=== PATIENT | male | born 1970 | race Caucasian/White ===

== ENCOUNTER 2025-05-28 15:35 | Emergency (ER) | payer MEDICAID ==
[~2025-05-28] VITALS: Ht 170.2 cm; Wt 76.4 kg
[2025-05-28 16:17] LABS: PLATELET COUNT (AUTO) 224 K/uL (150-450); RED BLOOD CELL COUNT(AUTO) 5.65 MIL/uL (4.50-5.90); RED CELL DISTRIBUTION WIDTH 14.1 % (11.5-14.5); WHITE BLOOD COUNT (AUTO) 16.0 K/uL (4.5-11.0)
[2025-05-28 16:28] LABS: CALCIUM, TOTAL 9.9 mg/dL (8.8-10.5); CREATININE 1.23 mg/dL (0.60-1.30); GLOMERULAR FILTR. RATE CALC > 60 mL/min (>60); GLUCOSE,RANDOM 171 mg/dL (70-110); SODIUM SERUM 138 mmol/L (136-145); UREA NITROGEN, BLOOD 22 mg/dL (7-18)
[2025-05-28 16:34] LABS: ASPARTATE AMINOTRANSFERASE 30 U/L (15-37); TOTAL PROTEIN, SERUM 8.1 g/dL (6.4-8.2)
[2025-05-28 16:39] LABS: ALCOHOL, BLOOD (SERUM) < 3 mg/dL (0-10); TROPONIN I-HIGH SENSITIVITY 12 ng/L (<76)
[2025-05-28 16:44] LABS: PLATELET MORPHOLOGY COMMENT LARGE PLTS PRESENT; RBC MORPHOLOGY COMMENT NORMAL RBC MORPH
[2025-05-28] MEDS: KETOROLAC TROMETHAMINE 30 MG/ML VIAL IVP ONE (17:14)
[2025-05-28] MEDS: ONDANSETRON HCL 4 MG/2 ML VIAL IVP ONE (17:15)
[2025-05-28] MEDS: SODIUM CHLORIDE 0.9% 1,000 ML IV ONE (17:15)
[2025-05-28] MEDS: FAMOTIDINE 20 MG/2 ML VIAL IVP ONE (17:17)
[2025-05-28 17:38] VITALS: BP 170/91; PULSE 65; RESP 18; TEMP 97.5; O2SAT 98
[2025-05-28] MEDS ORDERED: 0.9% SODIUM CHLORIDE 10 ML SYRINGE IVP ONE (17:40)
[2025-05-28] MEDS ORDERED: SODIUM CHLORIDE 0.9% 100 ML ONE (17:40)
[2025-05-28] MEDS ORDERED: IOHEXOL 350 MG/ML 100 ML VIAL ONE (17:40)
[2025-05-28 18:44] LABS: APPEARANCE,URINE CLEAR (CLEAR); GLUCOSE, URINE (UA) NEGATIVE (NEGATIVE); LEUKOCYTE ESTERASE ,URINE NEGATIVE (NEGATIVE); NITRATE,URINE NEGATIVE (NEGATIVE); OCCULT BLOOD,URINE NEGATIVE (NEGATIVE); SPECIFIC GRAVITIY, URINE 1.040 (1.003-1.030)
[2025-05-28] MEDS ORDERED: ONDA-104 PO (19:01)
== END 2025-05-28 19:25 | disposition home or self-care (01) ==
LOC: EMS 16:03
DX: R11.2 Nausea with vomiting, unspecified (principal); R10.33 Periumbilical pain; F17.210 Nicotine dependence, cigarettes, uncomplicated
CPT/HCPCS: 99285; 74177; 96374; 96375; 96361; 80048; 80076; 81003; 83690; 84484; 85025; 36415; 93005; J1885; G0480; Q9967; J3490; J2405; J7030; J7050

== ENCOUNTER 2025-06-15 07:51 | Emergency (ER) | payer MEDICAID ==
[~2025-06-15] VITALS: Ht 170.2 cm; Wt 63.6 kg
[~2025-06-15 07:51] MED LIST: ONDA-104 PO
[2025-06-15 07:54] VITALS: TEMP 97.9
[2025-06-15] MEDS ORDERED: SODIUM CHLORIDE 0.9% 100 ML ONE (08:19)
[2025-06-15] MEDS ORDERED: IOHEXOL 350 MG/ML 100 ML VIAL ONE (08:19)
[2025-06-15 08:30] LABS: PLATELET COUNT (AUTO) 388 K/uL (150-450); RED BLOOD CELL COUNT(AUTO) 5.09 MIL/uL (4.50-5.90); RED CELL DISTRIBUTION WIDTH 14.0 % (11.5-14.5); WHITE BLOOD COUNT (AUTO) 16.8 K/uL (4.5-11.0)
[2025-06-15] MEDS: MORPHINE SULFATE 2 MG/ML SYRINGE IVP ONE (09:17)
[2025-06-15] MEDS: SODIUM CHLORIDE 0.9% 1,000 ML IV ONE (09:17)
[2025-06-15] MEDS: MAG HYDROX/ALUMINUM HYD/SIMETH 30 ML SUSPENSION UDCUP PO ONE (09:17)
[2025-06-15] MEDS: ONDANSETRON HCL 4 MG/2 ML VIAL IVP ONE (09:17)
[2025-06-15] MEDS: FAMOTIDINE 20 MG/2 ML VIAL IVP ONE (09:17)
[2025-06-15 10:25] LABS: CALCIUM, TOTAL 9.2 mg/dL (8.8-10.5); CREATININE 1.00 mg/dL (0.60-1.30); GLOMERULAR FILTR. RATE CALC > 60 mL/min (>60); GLUCOSE,RANDOM 115 mg/dL (70-110); SODIUM SERUM 137 mmol/L (136-145); UREA NITROGEN, BLOOD 12 mg/dL (7-18)
[2025-06-15 10:35] LABS: ASPARTATE AMINOTRANSFERASE 17.0 U/L (15-37); TOTAL PROTEIN, SERUM 7.7 g/dL (6.4-8.2); TROPONIN I-HIGH SENSITIVITY 4 ng/L (<76)
[2025-06-15 11:00] VITALS: BP 123/64; PULSE 87; RESP 18; O2SAT 99
[2025-06-15] MEDS ORDERED: ACET-2247 PO (11:05)
[2025-06-15] MEDS ORDERED: OMEP10CA38 PO (11:05)
== END 2025-06-15 11:14 | disposition home or self-care (01) ==
LOC: EMS 07:51
DX: R10.11 Right upper quadrant pain (principal); R10.31 Right lower quadrant pain; Z98.890 Other specified postprocedural states; Z87.891 Personal history of nicotine dependence; Z79.899 Other long term (current) drug therapy
CPT/HCPCS: 99285; 74177; 96374; 76705; 96375; 96361; 80048; 80076; 83690; 84484; 85025; 36415; 93005; Q9967; J3490; J2270; J2405; J7030; J7050